=== PATIENT | male | born 1970 | race African-American/Black ===

== ENCOUNTER 2020-02-18 20:26 | Inpatient (IN) | payer BC ==
[~2020-02-18 20:26] MED LIST: Iopamidol-370 76% 500 ML 1 ML ONE
[2020-02-18 21:25] LABS: #Basophils 0.2 thou/uL (0.0-0.2); #Eosinphils 0.2 thou/uL (0.0-0.7); #Lymphocytes 2.3 thou/uL (1.20-3.40); #Neutrophils 8.3 thou/uL (1.40-6.50); %Basophils 1.3 % (0.0-1.0); %Eosinophils 1.4 % (0.0-10.0); %Lymphocytes 19.6 % (21.0-51.0); %Monocytes 8.1 % (0.0-10.0); %Neutrophils 69.6 % (42.0-75.0); Hemoglobin 13.8 g/dL (14.0-18.0); Mean Corpuscular HGB CONC 33.4 g/dL (32.0-36.0); Mean Corpuscular Hemoglobin 28.5 pg (27.0-31.0); Mean Corpuscular Volume 85.4 fL (78.0-98.0); Mean Platelet Volume 7.5 fL (7.4-10.4); Platelet Count 266 thou/uL (130-400); RBC Distribution Width 13.4 % (11.5-14.5); Red Blood Cell (RBC) Count 4.83 mill/uL (4.70-6.10); White Blood Cell (WBC) Count 11.9 thou/uL (4.8-10.8)
[2020-02-18 21:35] LABS: ALT (SGPT) 13 U/L (8-55); AST (SGOT) 14 U/L (5-34); Alkaline Phosphatase 54 U/L (40-110); Anion Gap 15 mmol/L (10-20); BUN (Urea Nitrogen) 14 mg/dL (8.9-20.6); Bilirubin, Total 0.8 mg/dL (0.2-1.2); Calc. Creatinine Clearance 0 mL/min (70-130); Carbon Dioxide 24 mmol/L (22-29); Chloride 100 mmol/L (98-107); Globulin 3.8 g/dL (2.4-3.5); Glucose 110 mg/dL (70-105); Potassium 3.8 mmol/L (3.5-5.1); Protein, Total 7.8 g/dL (6.0-8.3); Sodium 135 mmol/L (136-145)
--- NOTE | 2020-02-18 21:36 | RAD ---
Chest AP view INDICATION: History of sepsis COMPARISON: September 28, 2013 FINDINGS: Lungs: The lungs are clear Cardiac silhouette: The cardiomediastinal silhouette appears within normal limits. Pulmonary vasculature: Normal Pleural spaces: No pleural effusion or pneumothorax is demonstrated. Upper abdomen: No abnormality seen. Osseous structures: No acute osseous abnormality. Additional findings: None. IMPRESSION: No acute cardiopulmonary abnormality.
--- NOTE | 2020-02-18 21:56 | CT ---
CT OF THE ABDOMEN AND PELVIS WITH IV CONTRAST INDICATION: History of sepsis had abdominal hernia COMPARISON: Prior CT the abdomen and pelvis with contrast dated July 17, 2013 FINDINGS: ABDOMEN: Lung bases: There is subsegmental atelectasis involving both lower lobes. Liver: No focal lesion. Gallbladder: Normal appearing. Pancreas: Normal. Adrenal glands: Normal. Spleen: Normal. Kidneys and ureters: Normal. No hydronephrosis. Vasculature: Normal. Lymph nodes:No lymphadenopathy. Free fluid in abdomen:No free fluid is evident. PELVIS: Small and large bowel: There is herniated small and large bowel involving the patient's large umbilic us hernia. There is a volvulus appearance of loops of small bowel within the lower abdomen suspicious for mild closed-loop obstruction. There is some inflammation involving the herniated mesen dodie in this region. There is soft tissue reticulation and skin thickening involving the abdominal wall adjacent to the hernia sac. The appendix is not well seen and presumed to be in the herniated co ntents of the hernia sac. Appendix:As above Bladder: Normal. Rectal and perirectal soft tissues:Normal. Reproductive structures: Normal. Free fluid in pelvis: No free fluid is evident. Lymphadenopathy pelvis: No lymphadenopathy is evident. Osseous structures: No acute osseous abnormality. No destructive osteolytic or osteoblastic lesion i s identified. There is scattered degenerative and osteoarthritic changes. Soft tissues:As above IMPRESSION: 1. Large umbilical hernia containing herniated small and large bowel. There is a volvulus appearance of loops of small bowel within the hernia sac with a associated fluid in the hernia sac and mild dilatation of the small bowel loops suspicious for a mild closed-loop obstruction. Surgical consultat ion is recommended. 2. Thickening of the skin and subcutaneous fat reticulation adjacent to the hernia sac may be reactiv e in nature related to the closed loop obstruction; however, component of panniculitis is not excluded.
[2020-02-18] MEDS ORDERED: Morphine 4 MG/ML VIAL ONE (22:11)
[2020-02-18] MEDS ORDERED: Piperacillin/Tazobactam 3.375 GM VIAL ONE (22:11)
[2020-02-18] MEDS ORDERED: Ondansetron PF 4 MG/2 ML Vial ONE (22:11)
[2020-02-18] MEDS ORDERED: Vancomycin 1 GM/200 ML BAG ONE (22:50)
[2020-02-18] MEDS ORDERED: Midazolam HCl 2 mg/2 ml Vial ONE (23:32)
[2020-02-18] MEDS ORDERED: Fentanyl 100 MCG/2 ML VIAL ONE (23:32)
[2020-02-19 00:43] LABS: SARS-CoV-2 NAA Rapid Test Not Detected (NotDetected)
[2020-02-19 00:51] LABS: Bacteria/HPF None Seen HPF (None Seen); Mucous/LPF 1+ LPF (<2+); Squamous Epithelial 0-3 HPF (0-3)
[2020-02-19 00:53] LABS: Bilirubin Negative (Negative); Blood, Urine 2+ (Negative); Clarity Clear (Clear); Glucose, Urine (Dipstick) Normal (Negative); Ketone, Urine 40 mg/dL (Negative); Leukocyte Negative Leu/uL (Negative); Nitrite Negative (Negative); Protein, Urine (Dipstick) 30 mg/dL (Neg-Trace); Urobilinogen Normal mg/dL (Less than 2)
[2020-02-19 00:54] LABS: Specific Gravity, Urine Greater than 1.060 (1.002-1.036)
[2020-02-19] MEDS ORDERED: Succinylcholine 200 MG/10 ml SYRINGE FS ONE (01:02)
[2020-02-19] MEDS ORDERED: Rocuronium Bromide 10 MG/ML (10ML VIAL) ONE (01:02)
[2020-02-19] MEDS ORDERED: Lidocaine 1% PF 5 ML VIAL ONE (01:02)
[2020-02-19] MEDS ORDERED: PROPOFOL 200 MG/20 ML VIAL ONE (01:02)
--- NOTE | 2020-02-19 01:38 | HP ---
CHIEF COMPLAINT: Severe abdominal pain, nausea, vomiting. HISTORY OF PRESENT ILLNESS: Patient is a 49-year-old male, who had a sigmoid colectomy for diverticular disease and perforation 6 years ago. Apparently, he developed a hernia and then over the last 3 days that hernia has become extremely painful, he has been vomiting. He did have a small bowel movement this morning. PAST MEDICAL HISTORY: History of diverticulitis, morbid obesity. PAST SURGERIES: Sigmoid resection 6 years ago. He takes testosterone injections. ALLERGIES: NO KNOWN DRUG ALLERGIES. SOCIAL HISTORY: He is single. 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 No tobacco. Social alcohol. FAMILY HISTORY: Noncontributory. PHYSICAL EXAMINATION: VITAL SIGNS: He is afebrile, pulse 94, blood pressure 166/112. GENERAL: Morbidly obese adult, awake, alert. HEENT: Unremarkable. LUNGS: Clear. HEART: Regular rate and rhythm. ABDOMEN: Morbidly obese. He has edema and erythema above an incarcerated ventral hernia that cannot reduce, it is tender. EXTREMITIES: Unremarkable. LABORATORY DATA: White count 11.9, H and H of 13.8 and 41, platelet count 266. Electrolytes are fine. CT shows strangulated ventral hernia with bowel obstruction due to volvulus of the small bowel. ASSESSMENT: Strangulated ventral hernia. PLAN: Laparotomy, repair of hernia. CONSENT: I have discussed the planned procedure as well as the risk of injury to bowel and need to remove bowel, very high risk of recurrent hernia. He understands and gives informed consent. Job ID: [id number]
[2020-02-19] MEDS ORDERED: Rocuronium Bromide 50 MG/5 ML VIAL ONE (02:49)
[2020-02-19] MEDS ORDERED: SUGAMMADEX SODIUM 500 MG/5 ML VIAL ONE (03:16)
[2020-02-19] MEDS ORDERED: hydrALAZINE 20 MG/ML VIAL SLOW IVP PRN (03:32)
[2020-02-19] MEDS ORDERED: HumaLOG 300 UNITS/3 ML VIAL SC PRN (03:32)
[2020-02-19] MEDS ORDERED: Promethazine HCl 25 MG/ML VIAL IM PRN ×4 (03:32→14:13)
[2020-02-19] MEDS ORDERED: Ondansetron PF 4 MG/2 ML Vial IVP PRN ×3 (03:32→14:13)
[2020-02-19] MEDS ORDERED: Ondansetron HCl/PF 4 MG/2 ML Vial IVP PRN (03:52)
[2020-02-19] MEDS ORDERED: Promethazine HCl 25 MG/ML VIAL SLOW IVP PRN (03:52)
[2020-02-19] MEDS ORDERED: Fentanyl 100 MCG/2 ML VIAL ONE (03:57)
[2020-02-19] MEDS: Sodium Chloride 0.9% 1,000 ML IV SCH ×3 (04:07→23:39)
--- NOTE | 2020-02-19 04:14 | OP ---
DATE OF PROCEDURE: 02/19/2020 PREOPERATIVE DIAGNOSIS: Strangulated ventral hernia. PROCEDURES PERFORMED: Exploratory laparotomy, small-bowel resection, appendectomy, repair of strangulated ventral hernia. INDICATIONS: This is a 49-year-old male, who six years ago had had a sigmoid colon resection. He developed a hernia couple years ago and over the last three days, it caused a lot of pain, vomiting, and abdominal distention. CT scan showed a ventral hernia with volvulus of the small bowel. FINDINGS: The defect was 5 cm. It included cecum, the appendix, and the tip of the appendix was somehow wrapped into this volvulus of small bowel with obvious necrosis. DESCRIPTION OF PROCEDURE: After informed consent was obtained on emergency basis, the patient was taken to the operating room and given general endotracheal anesthesia. He was placed in the supine position. Abdomen was prepped and draped in usual fashion. Midline incision was performed, subcu divided sharply. There were multiple pockets to this hernia. The hernia sac was open, and I was able to then feel another hernia sac that was open and another hernia sac that was open, found them all communicating together, circumferentially freed it all up. Most of the bowel looked pretty viable, but then there was this in the center of the terminal ileum by about 9 inches from the ileocecal valve that included the tip of the appendix, and as I tried to separate, I could see necrotic foul-smelling bowel, so I elected to resect this to include resection of the appendix, so distally the small bowel was divided with the MARTIN. Proximally, the small bowel divided with the MARTIN. The mesentery was divided with the LigaSure. The appendix was ligated with 0 chromic ties and divided to be attached to the specimen. Specimen sent to Pathology for further analysis. Hemostasis was assured. Then, I had to do a lysis of adhesions to free up this edge of the hernia circumferentially, so the bowel contents could be reduced. The hernia sac was then excised, and the fascia closed transversely with interrupted [id number] of #2 nylon due to his very large size. Then, the subcu was irrigated. A drain was placed and brought out through a separate stab wound, wound up excising his umbilicus because there was so much redundant skin, and then the subcu was closed with interrupted 3-0 Vicryl and the skin closed with skin sapna. Sterile bandage applied. The patient tolerated the procedure well, transferred to Recovery in fair condition. Job ID: [id number]
[2020-02-19 04:25] VITALS: BMI 49.2
[2020-02-19] MEDS ORDERED: diphenhydrAMINE 25 MG CAP PO PRN ×2 (04:31→14:13)
[2020-02-19] MEDS ORDERED: diphenhydrAMINE 50 MG/ML VIAL IVP PRN ×2 (04:31→14:13)
[2020-02-19] MEDS ORDERED: HYDROmorphone 10 mg/100 ml CADD IVPB PRN (04:31)
[2020-02-19] MEDS ORDERED: diphenhydrAMINE 50 MG/ML VIAL IM PRN ×2 (04:31→14:13)
[2020-02-19] MEDS ORDERED: Naloxone HCl 0.4 mg/ml Vial IV PRN ×2 (04:31→14:13)
[2020-02-19] MEDS ORDERED: Zolpidem Tartrate 5 MG TAB PO PRN ×2 (04:31→14:13)
[2020-02-19] MEDS ORDERED: Communication Order-Pharmacy FS SCH ×2 (04:45→14:15)
[2020-02-19 07:33] LABS: #Lymphocytes 1.1 thou/uL (1.20-3.40); #Monocytes 0.7 thou/uL (0.11-0.59); #Neutrophils 8.3 thou/uL (1.40-6.50); %Basophils 0.3 % (0.0-1.0); %Eosinophils 0.2 % (0.0-10.0); %Lymphocytes 11.2 % (21.0-51.0); %Monocytes 6.8 % (0.0-10.0); %Neutrophils 81.5 % (42.0-75.0); Mean Corpuscular HGB CONC 33.2 g/dL (32.0-36.0); Mean Corpuscular Hemoglobin 29.2 pg (27.0-31.0); Mean Corpuscular Volume 87.8 fL (78.0-98.0); Mean Platelet Volume 7.4 fL (7.4-10.4); Platelet Count 248 thou/uL (130-400); RBC Distribution Width 13.4 % (11.5-14.5); Red Blood Cell (RBC) Count 4.46 mill/uL (4.70-6.10); White Blood Cell (WBC) Count 10.2 thou/uL (4.8-10.8)
[2020-02-19 07:41] LABS: Anion Gap 15 mmol/L (10-20); BUN (Urea Nitrogen) 12 mg/dL (8.9-20.6); Calc. Creatinine Clearance 268 mL/min (70-130); Calcium 8.3 mg/dL (7.8-10.44); Carbon Dioxide 21 mmol/L (22-29); Chloride 103 mmol/L (98-107); Glucose 133 mg/dL (70-105); Potassium 4.2 mmol/L (3.5-5.1); Sodium 135 mmol/L (136-145)
[2020-02-19] MEDS: cefOXitin Sodium/Dextrose,Iso 2 GM in Premix Bag 1 BAG IVPB SCH ×3 (08:56→21:18)
[2020-02-19] MEDS: Famotidine/PF 20 mg/2ml Vial SLOW IVP SCH ×2 (08:57→21:13)
[2020-02-19] MEDS: Famotidine 20 MG TAB PO SCH ×2 (08:57→19:41)
--- NOTE | 2020-02-19 14:48 | PRG ---
DATE OF SERVICE: 02/19/2020 SUBJECTIVE: The patient says he is in moderate pain. No nausea or vomiting. OBJECTIVE: VITAL SIGNS: Temperature is 98.5, pulse 86, blood pressure 140/70. GENERAL: He looks good. He is awake, alert. LUNGS: Clear. ABDOMEN: Soft. The dressing is dry. His drain putting out some serosanguineous quantitated. Urine is good. LABORATORY DATA: White count is 10, H/H 13 and 39, platelet count 248. Electrolytes are good. ASSESSMENT: Status post small bowel resection for strangulated hernia, stable. PLAN: Ambulate with Lovelace out in the morning. Job ID: [id number]
[2020-02-19] MEDS: fentaNYL Citrate/PF 2,000 MCG in Sodium Chloride 0.9% 60 ML IV PRN (16:59)
[2020-02-19] MEDS ORDERED: Acetaminophen 325 MG TAB PO PRN (20:21)
[2020-02-19] MEDS: Enoxaparin Sodium 40 MG/0.4 ML SYRINGE SC SCH (21:13)
[2020-02-20] MEDS: cefOXitin Sodium/Dextrose,Iso 2 GM in Premix Bag 1 BAG IVPB SCH ×3 (05:15→21:09)
[2020-02-20] MEDS: Sodium Chloride 0.9% 1,000 ML IV SCH ×3 (08:48→21:14)
[2020-02-20] MEDS: Famotidine/PF 20 mg/2ml Vial SLOW IVP SCH ×2 (08:53→21:09)
[2020-02-20] MEDS: Famotidine 20 MG TAB PO SCH ×2 (08:57→21:12)
[2020-02-20] MEDS ORDERED: FLU VACC QS2020-21(6MOS UP)/PF 60 MCG/0.5 ML SYRINGE IM ONE (09:00)
--- NOTE | 2020-02-20 10:24 | PRG ---
DATE OF SERVICE: 02/20/2020 SUBJECTIVE: The patient reports his pain is better. He denies any nausea or vomiting. He is passing flatus at his bottom. OBJECTIVE: VITAL SIGNS: His temperature is 97.3, pulse 98, blood pressure 150/76. GENERAL: He is awake, alert. ABDOMEN: Soft. The incision looks good. There is some minimal discharge that he still has a lot of, I guess, peau d'orange to the abdominal wall, but it seems a little better. LABORATORY DATA: His white count is 10, hemoglobin and hematocrit are 13 and 39, platelet count 248. His urine output is good. ADILIA drain 85. PLAN: Discontinue Lovelace. Ambulate. Job ID: [id number]
[2020-02-20] MEDS: Enoxaparin Sodium 40 MG/0.4 ML SYRINGE SC SCH (21:09)
[2020-02-21] MEDS: fentaNYL Citrate/PF 2,000 MCG in Sodium Chloride 0.9% 60 ML IV PRN (01:18)
[2020-02-21] MEDS: cefOXitin Sodium/Dextrose,Iso 2 GM in Premix Bag 1 BAG IVPB SCH ×3 (05:30→21:14)
[2020-02-21] MEDS: Famotidine/PF 20 mg/2ml Vial SLOW IVP SCH ×2 (08:07→21:22)
[2020-02-21] MEDS: Famotidine 20 MG TAB PO SCH ×2 (08:07→21:14)
[2020-02-21] MEDS ORDERED: HYDROcodone/Acetaminophen 5/325 mg Tablet PO PRN ×2 (10:15)
--- NOTE | 2020-02-21 10:31 | PRG ---
DATE OF SERVICE: 02/21/2020 SUBJECTIVE: The patient said he feels better. His pain is improving. He is tolerating clear liquids. He is passing flatus. No nausea or vomiting. OBJECTIVE: VITAL SIGNS: Temperature 98.7, pulse 84, blood pressure is 134/71. ABDOMEN: Obese, soft, nondistended. He still has some cellulitis in the surrounding tissue of the wound across the lower abdomen. It had not gotten any worse, maybe a little better. Drain output looked serosanguineous and had 60 out his drain. Pathology showed necrotic small bowel viable margins. ASSESSMENT: Status post bowel resection for strangulated ventral hernia, doing well. PLAN: Full liquid diet. Continue antibiotics. Job ID: [id number]
[2020-02-21] MEDS: Enoxaparin Sodium 40 MG/0.4 ML SYRINGE SC SCH (21:14)
[2020-02-22] MEDS: cefOXitin Sodium/Dextrose,Iso 2 GM in Premix Bag 1 BAG IVPB SCH ×3 (05:14→22:59)
[2020-02-22] MEDS: Famotidine/PF 20 mg/2ml Vial SLOW IVP SCH ×2 (08:39→20:32)
[2020-02-22] MEDS: Famotidine 20 MG TAB PO SCH ×2 (08:41→20:39)
--- NOTE | 2020-02-22 17:38 | PRG ---
DATE OF SERVICE: 02/22/2020 SUBJECTIVE: The patient is feeling a lot better. He is tolerating full liquids well. The pain was improved. No nausea or vomiting. Bowels are functioning well. OBJECTIVE: VITAL SIGNS: On exam, his T-max was 99, pulse 79, blood pressure 139/69. GENERAL: Looks good. ABDOMEN: Says a little bit of induration of the abdominal wall, but the swelling is going down. His ADILIA put out 35. ASSESSMENT: Doing well. PLAN: We will advance diet to regular diet. Discharge in the morning. Job ID: [id number]
[2020-02-22] MEDS: Enoxaparin Sodium 40 MG/0.4 ML SYRINGE SC SCH (20:39)
[2020-02-23] MEDS: cefOXitin Sodium/Dextrose,Iso 2 GM in Premix Bag 1 BAG IVPB SCH (05:32)
[2020-02-23] MEDS: Famotidine 20 MG TAB PO SCH (08:37)
--- NOTE | 2020-02-23 11:24 | EKG ---
Test Reason : Blood Pressure : / mmHG Vent. Rate : 100 BPM Atrial Rate : 100 BPM P-R Int : 174 ms QRS Dur : 090 ms QT Int : 312 ms P-R-T Axes : 059 -03 015 degrees QTc Int : 402 ms Normal sinus rhythm Moderate voltage criteria for LVH, may be normal variant Borderline ECG Confirmed by FREDDIE MAYEN ([id number]), editor magazine ELLIE TORRES ([id number]) on 02/23/2020 11:24:03 AM Referred By: Confirmed By:FREDDIE MAYEN
[2020-02-23 12:58] VITALS: BP 160/94; TEMP 98
--- NOTE | 2020-02-23 13:23 | DIS ---
DATE OF ADMISSION: 02/19/2020 DATE OF DISCHARGE: 02/23/2020 DISCHARGE DIAGNOSES: Strangulated ventral hernia with necrotic small bowel and obstruction. Morbid obesity. PROCEDURES DURING ADMISSION: Exploratory laparotomy, ventral hernia repair, small bowel resection. HOSPITAL COURSE: The patient was admitted. He was given IV antibiotics and fluids, taken the operating room where he underwent a laparotomy. He was found to have necrotic loop of bowel that was resected. The hernia was repaired primarily without mesh. Postoperatively, he has done well. Pain is controlled. His bowels are functioning well. He is voiding well. He is discharged home on hydrocodone, Zofran, and doxycycline. He still has a drain in. He has been instructed as to drain care and will follow up with me in about 3 or 4 days for drain removal. Job ID: [id number]
== END 2020-02-23 12:30 | disposition home or self-care (01) | DRG 329 ==
LOC: ERS 20:26 → SDC/OP 02-19 00:48 → ONC 02-19 03:32
PROVIDERS: ADMIT Surgery; ATTEND Surgery
PROC: 0WQF0ZZ Repair Abdominal Wall, Open Approach (ICD-10-PCS; principal; 2020-02-19)
PROC: 0DB80ZZ Excision of Small Intestine, Open Approach (ICD-10-PCS; 2020-02-19)
PROC: 0DTJ0ZZ Resection of Appendix, Open Approach (ICD-10-PCS; 2020-02-19)
DX: K43.6 Other and unspecified ventral hernia with obstruction, without gangrene (principal); K55.029 Acute infarction of small intestine, extent unspecified; K56.2 Volvulus; Z68.42 Body mass index [BMI] 45.0-49.9, adult; L03.311 Cellulitis of abdominal wall; K56.609 Unspecified intestinal obstruction, unspecified as to partial versus complete obstruction; E66.01 Morbid (severe) obesity due to excess calories; Z90.49 Acquired absence of other specified parts of digestive tract; Z20.828 Contact with and (suspected) exposure to other viral communicable diseases
CPT/HCPCS: 36415; 36416; 71045; 74177; 80048; 80053; 81003; 81015; 83605; 85025; 87040; 87086; 88307; 93005; 94640; 96365; 96367; 96375; J0694; J1200; J1650; J2250; J2270; J2405; J2543; J2704; J3010; J3370; J3490; J7620; Q9967; S0028; U0002